=== PATIENT | male | born 1945 | race African-American/Black ===

== ENCOUNTER 2018-09-24 11:51 | Emergency (ER) | payer OTHER ==
[~2018-09-24] VITALS: Ht 180.3 cm; Wt 110.0 kg
[2018-09-24 12:22] VITALS: BP 151/76
== END 2018-09-24 16:26 | disposition home or self-care (01) ==
LOC: ER 12:07
DX: S09.8XXA Other specified injuries of head, initial encounter (principal); S10.83XA Contusion of other specified part of neck, initial encounter; S80.01XA Contusion of right knee, initial encounter; R46.1 Bizarre personal appearance; F14.10 Cocaine abuse, uncomplicated; F15.10 Other stimulant abuse, uncomplicated; V49.59XA Passenger injured in collision with other motor vehicles in traffic accident, initial encounter; Y93.89 Activity, other specified; Y92.410 Unspecified street and highway as the place of occurrence of the external cause
CPT/HCPCS: 73562; 99283